=== PATIENT | male | born 1985 | race Hispanic/Latino ===

== ENCOUNTER 2021-01-22 16:48 | Emergency (ER) | payer OTHER ==
[2021-01-22] MEDS ORDERED: KETOROLAC 60 MG VIAL (30MG/ML) IM ONE (20:15)
[2021-01-22 20:47] VITALS: BP 156/80
[2021-01-22] MEDS ORDERED: MELO7.5T12 PO (21:28)
[2021-01-22] MEDS ORDERED: CYCL10TA7 PO (21:28)
[2021-01-22 21:48] VITALS: BP 144/78
== END 2021-01-22 21:49 | disposition home or self-care (01) ==
LOC: EDH 16:48
DX: S80.02XA Contusion of left knee, initial encounter (principal); Z79.1 Long term (current) use of non-steroidal anti-inflammatories (NSAID); W17.89XA Other fall from one level to another, initial encounter; Y93.89 Activity, other specified; Y92.89 Other specified places as the place of occurrence of the external cause; Y99.8 Other external cause status
CPT/HCPCS: 73562

== ENCOUNTER → 2021-09-15 | Outpatient (CLI) | payer MEDICAID, OTHER ==
[~2021-09-15] MED LIST: CEFU500T67 PO
== END | disposition home or self-care (01) ==
LOC: WHH 08:58
PROVIDERS: ATTEND Family Medicine
DX: T81.89XA Other complications of procedures, not elsewhere classified, initial encounter (principal); S31.102A Unspecified open wound of abdominal wall, epigastric region without penetration into peritoneal cavity, initial encounter; Z90.49 Acquired absence of other specified parts of digestive tract; Z98.890 Other specified postprocedural states; Z79.899 Other long term (current) drug therapy; Z93.3 Colostomy status; X58.XXXA Exposure to other specified factors, initial encounter; Y83.8 Other surgical procedures as the cause of abnormal reaction of the patient, or of later complication, without mention of misadventure at the time of the procedure; Y92.238 Other place in hospital as the place of occurrence of the external cause; Y93.89 Activity, other specified
CPT/HCPCS: 99215; A4450

== ENCOUNTER → 2021-09-22 | Outpatient (CLI) | payer MEDICAID, OTHER | END | disposition home or self-care (01) | LOC: WHH 09:03 | PROVIDERS: ATTEND Family Medicine | DX: T81.89XD Other complications of procedures, not elsewhere classified, subsequent encounter (principal); S31.102D Unspecified open wound of abdominal wall, epigastric region without penetration into peritoneal cavity, subsequent encounter; Z90.49 Acquired absence of other specified parts of digestive tract; Z98.890 Other specified postprocedural states; Z79.899 Other long term (current) drug therapy; Z93.3 Colostomy status; X58.XXXD Exposure to other specified factors, subsequent encounter; Y83.8 Other surgical procedures as the cause of abnormal reaction of the patient, or of later complication, without mention of misadventure at the time of the procedure | CPT/HCPCS: 99214 ==

== ENCOUNTER → 2021-09-29 | Outpatient (CLI) | payer OTHER ==
[~2021-09-29] MED LIST changes: +HONEY 1 APPL/ML TUBE TP ONE; +LIDOCAINE HCL 4% LTA SOL 4 ML VIAL TP ONE
== END | disposition home or self-care (01) ==
LOC: WHH 10:04
PROVIDERS: ATTEND Family Medicine
DX: T81.31XD Disruption of external operation (surgical) wound, not elsewhere classified, subsequent encounter (principal); S31.102D Unspecified open wound of abdominal wall, epigastric region without penetration into peritoneal cavity, subsequent encounter; Z90.49 Acquired absence of other specified parts of digestive tract; Z98.890 Other specified postprocedural states; Z79.899 Other long term (current) drug therapy; Z93.3 Colostomy status; X58.XXXD Exposure to other specified factors, subsequent encounter; Y83.8 Other surgical procedures as the cause of abnormal reaction of the patient, or of later complication, without mention of misadventure at the time of the procedure
CPT/HCPCS: 99214

== ENCOUNTER → 2021-10-06 | Outpatient (CLI) | payer OTHER | END | disposition home or self-care (01) | LOC: WHH 10:03 | PROVIDERS: ATTEND Family Medicine | DX: T81.31XD Disruption of external operation (surgical) wound, not elsewhere classified, subsequent encounter (principal); S31.102D Unspecified open wound of abdominal wall, epigastric region without penetration into peritoneal cavity, subsequent encounter; Z90.49 Acquired absence of other specified parts of digestive tract; Z98.890 Other specified postprocedural states; Z79.899 Other long term (current) drug therapy; Z93.3 Colostomy status; X58.XXXD Exposure to other specified factors, subsequent encounter; Y83.8 Other surgical procedures as the cause of abnormal reaction of the patient, or of later complication, without mention of misadventure at the time of the procedure | CPT/HCPCS: 11042 ==

== ENCOUNTER → 2021-10-13 | Outpatient (CLI) | payer MEDICAID, OTHER ==
[~2021-10-13] MED LIST changes: -HONEY 1 APPL/ML TUBE TP ONE; -LIDOCAINE HCL 4% LTA SOL 4 ML VIAL TP ONE
== END | disposition home or self-care (01) ==
LOC: WHH 11:01
PROVIDERS: ATTEND Family Medicine
DX: T81.89XD Other complications of procedures, not elsewhere classified, subsequent encounter (principal); S31.102D Unspecified open wound of abdominal wall, epigastric region without penetration into peritoneal cavity, subsequent encounter; Z90.49 Acquired absence of other specified parts of digestive tract; Z98.890 Other specified postprocedural states; Z79.899 Other long term (current) drug therapy; Z93.3 Colostomy status; X58.XXXD Exposure to other specified factors, subsequent encounter; Y83.8 Other surgical procedures as the cause of abnormal reaction of the patient, or of later complication, without mention of misadventure at the time of the procedure
CPT/HCPCS: 99214

== ENCOUNTER 2022-06-19 09:20 | Inpatient (IN) | payer MEDICAID, OTHER ==
[~2022-06-19] VITALS: Ht 160 cm; Wt 76.2 kg
[2022-06-19 11:13] LABS: CREATININE 0.9 mg/dL (0.5-1.5); POTASSIUM 3.8 mmol/L (3.5-5.1)
[2022-06-19 11:17] LABS: BASOPHILS % (AUTO) 0.7 % (0.0-5.0); EOSINOPHILS % (AUTO) 1.5 % (0.0-8.0); HEMATOCRIT 42.2 % (42-54); LYMPHOCYTES % (AUTO) 15.8 % (21.0-51.0); MEAN CORPUSCULAR HEMOGLOBIN 29.6 pg (27.0-33.0); MEAN CORPUSCULAR HGB CONC 35.5 g/dL (32.0-36.0); MEAN CORPUSCULAR VOLUME 83.2 fL (79-99); MONOCYTES % (AUTO) 5.2 % (3.0-13.0); NEUTROPHILS % (AUTO) 76.2 % (40.0-77.0); PLATELET COUNT (AUTO) 331 K/uL (130-400); RED BLOOD CELL COUNT(AUTO) 5.07 MIL/uL (4.50-6.20); RED CELL DISTRIBUTION WIDTH 12.5 % (11.0-15.5); WHITE BLOOD COUNT (AUTO) 6.7 K/uL (4.8-10.8)
[2022-06-19 11:18] LABS: ALBUMIN 4.1 g/dL (3.5-5.0); TOTAL PROTEIN, SERUM 7.7 g/dL (6.0-8.3)
[2022-06-19 11:55] LABS: INR 0.93 (0.85-1.15); PROTHROMBIN TIME 10.1 SEC (9.6-11.6)
[2022-06-19] MEDS ORDERED: PEG 3350/NA SULF,BICARB,CL/KCL 4000 ML SOLN PO ONE (12:00)
[2022-06-19] MEDS: 0.9%NACL 1000ML 1,000 ML IV SCH ×2 (12:20→22:10)
[2022-06-19] MEDS: ZOSYN 3.375GM +NS 50ML IV SCH ×2 (12:20→20:45)
[2022-06-19 12:44] LABS: APPEARANCE,URINE CLEAR (CLEAR); BILIRUBIN,URINE NEGATIVE (NEGATIVE); COLOR,URINE LIGHT-YELLOW (YELLOW); GLUCOSE, URINE (UA) NEGATIVE (NEGATIVE); KETONES,URINE NEGATIVE (NEGATIVE); LEUKOCYTE ESTERASE ,URINE NEGATIVE Leu/uL (NEGATIVE); NITRATE,URINE NEGATIVE (NEGATIVE); OCCULT BLOOD,URINE NEGATIVE (NEGATIVE); PROTEIN,URINE NEGATIVE (NEGATIVE); UROBILINOGEN,URINE 0.2 mg/dL (0.2-1.0)
[2022-06-19] MEDS ORDERED: IOHEXOL 350 MG/ML 100ML INFUS..BTL IV ONE (13:18)
[2022-06-20] VITALS (21 sets, daily range): BP systolic 112–148; BP diastolic 50–93
[2022-06-20] MEDS: ZOSYN 3.375GM +NS 50ML IV SCH ×3 (04:32→20:11)
[2022-06-20 06:21] LABS: MEAN CORPUSCULAR HGB CONC 34.5 g/dL (32.0-36.0); MEAN CORPUSCULAR VOLUME 84.3 fL (79-99); RED BLOOD CELL COUNT(AUTO) 4.51 MIL/uL (4.50-6.20); RED CELL DISTRIBUTION WIDTH 12.5 % (11.0-15.5); WHITE BLOOD COUNT (AUTO) 5.5 K/uL (4.8-10.8)
[2022-06-20 06:29] LABS: POTASSIUM 3.6 mmol/L (3.5-5.1)
[2022-06-20] MEDS: ENOXAPARIN SODIUM 40 MG/0.4 ML SYRINGE SQ SCH (09:00)
[2022-06-20] MEDS: PANTOPRAZOLE 40 MG/VIAL IVP SCH (09:00)
[2022-06-20] MEDS: 0.9%NACL 1000ML 1,000 ML IV SCH ×2 (09:48→20:45)
[2022-06-20] MEDS ORDERED: LACTATED RINGERS 1000ML 1,000 ML IV ONE (10:20)
[2022-06-20] MEDS ORDERED: BUPIVACAINE/PF 0.5% 30ML VIAL ONE (10:30)
[2022-06-20] MEDS ORDERED: LIDOCAINE HCL 1% 10 ML VIAL ONE ×2 (10:31→14:57)
[2022-06-20] MEDS ORDERED: CEFAZOLIN SODIUM 1 GM VIAL ONE (10:32)
[2022-06-20] MEDS ORDERED: EPINEPHRINE PF 1MG (1:1,000) 1 MG/ML AMP ONE (10:42)
[2022-06-20] MEDS ORDERED: DEXAMETHASONE SOD PHOSPHATE 10MG/ML 1ML VIAL ONE (11:08)
[2022-06-20] MEDS ORDERED: MIDAZOLAM HCL 1 MG/ML 2ML VIAL ONE (11:08)
[2022-06-20] MEDS ORDERED: LIDOCAINE PF 100MG/5ML (2%) SYRINGE 5ML ONE (11:08)
[2022-06-20] MEDS ORDERED: SUCCINYLCHOLINE CHLORIDE 20 MG/ML 10 ML VIAL ONE (11:08)
[2022-06-20] MEDS ORDERED: ONDANSETRON 4MG INJ ONE ×2 (11:08→13:04)
[2022-06-20] MEDS ORDERED: PROPOFOL 10 MG/ML 20ML VIAL IV ONE (11:09)
[2022-06-20] MEDS ORDERED: NEOSTIGMINE 5MG/5ML SYR IV ONE (11:09)
[2022-06-20] MEDS ORDERED: GLYCOPYRROLATE 1 MG/5 ML SYRINGE ONE (11:09)
[2022-06-20] MEDS ORDERED: ROCURONIUM 10MG/1ML SYR 10 MG/ML ML ONE ×2 (11:09→13:12)
[2022-06-20] MEDS ORDERED: FENTANYL CITRATE PF 50 MCG/1 ML 2ML VIAL ONE (11:09)
[2022-06-20] MEDS ORDERED: PHENYLEPHRINE HCL 10 MG/ML 1ML VIAL IV ONE (11:27)
[2022-06-20] MEDS ORDERED: FENTANYL CITRATE PF 50 MCG/1 ML 5ML AMP IV ONE (13:12)
[2022-06-20] MEDS ORDERED: BUPIVACAINE/EPI/PF 0.5% 30ML VIAL IJ ONE (14:56)
[2022-06-20] MEDS ORDERED: MEPERIDINE-PF 25 MG/ML SYG ONE ×2 (17:59→18:15)
[2022-06-20] MEDS ORDERED: HYDROMORPHONE 1 MG INJ ONE (18:05)
[2022-06-20] MEDS ORDERED: KETOROLAC 30MG VIAL (30MG/ML) ONE (18:27)
[2022-06-20] MEDS: ONDANSETRON 4MG INJ IVP PRN (20:11)
[2022-06-20] MEDS: HYDROMORPHONE 1 MG INJ IVP PRN (20:13)
[2022-06-21 00:40] VITALS: BP 120/75
[2022-06-21 04:00] VITALS: BP 118/78
[2022-06-21] MEDS: ZOSYN 3.375GM +NS 50ML IV SCH ×3 (04:28→21:09)
[2022-06-21] MEDS: 0.9%NACL 1000ML 1,000 ML IV SCH ×3 (04:29→21:10)
[2022-06-21] MEDS: ONDANSETRON 4MG INJ IVP PRN ×2 (04:48→18:18)
[2022-06-21] MEDS: HYDROMORPHONE 1 MG INJ IVP PRN ×4 (04:50→18:18)
[2022-06-21 05:33] LABS: MEAN CORPUSCULAR HEMOGLOBIN 29.6 pg (27.0-33.0); MEAN CORPUSCULAR VOLUME 84.5 fL (79-99); RED BLOOD CELL COUNT(AUTO) 4.26 MIL/uL (4.50-6.20); RED CELL DISTRIBUTION WIDTH 12.5 % (11.0-15.5); WHITE BLOOD COUNT (AUTO) 11.9 K/uL (4.8-10.8)
[2022-06-21 05:46] LABS: CREATININE 0.9 mg/dL (0.5-1.5); POTASSIUM 4.1 mmol/L (3.5-5.1)
[2022-06-21 08:00] VITALS: BP 130/78
[2022-06-21] MEDS: PANTOPRAZOLE 40 MG/VIAL IVP SCH (10:04)
[2022-06-21] MEDS: ENOXAPARIN SODIUM 40 MG/0.4 ML SYRINGE SQ SCH (10:05)
[2022-06-21 11:00] VITALS: BP 125/80
[2022-06-21] MEDS: KETOROLAC 30MG VIAL (30MG/ML) IVP PRN (14:17)
[2022-06-21 16:00] VITALS: BP 117/71
[2022-06-21] MEDS ORDERED: LOSA50TA64 PO (18:51)
[2022-06-21] MEDS ORDERED: ATOR40TA71 PO (18:52)
[2022-06-21] MEDS ORDERED: ASPI-1197 PO (18:53)
[2022-06-21] MEDS ORDERED: METF-445 PO (18:55)
[2022-06-21 19:00] VITALS: BP 129/79
[2022-06-22] VITALS (7 sets, daily range): BP systolic 116–140; BP diastolic 76–83
[2022-06-22] MEDS: HYDROMORPHONE 1 MG INJ IVP PRN ×2 (03:13→11:11)
[2022-06-22] MEDS ORDERED: PHENAZOPYRIDINE HCL 200 MG TABLET ONE (04:41)
[2022-06-22] MEDS: ZOSYN 3.375GM +NS 50ML IV SCH ×3 (04:58→20:16)
[2022-06-22] MEDS: 0.9%NACL 1000ML 1,000 ML IV SCH ×2 (04:59→20:17)
[2022-06-22 05:34] LABS: BASOPHILS % (AUTO) 0.2 % (0.0-5.0); HEMATOCRIT 33.4 % (42-54); LYMPHOCYTES % (AUTO) 15.2 % (21.0-51.0); MEAN CORPUSCULAR HEMOGLOBIN 29.3 pg (27.0-33.0); MEAN CORPUSCULAR HGB CONC 34.4 g/dL (32.0-36.0); NEUTROPHILS % (AUTO) 78.3 % (40.0-77.0); PLATELET COUNT (AUTO) 232 K/uL (130-400); RED BLOOD CELL COUNT(AUTO) 3.93 MIL/uL (4.50-6.20); RED CELL DISTRIBUTION WIDTH 12.4 % (11.0-15.5); WHITE BLOOD COUNT (AUTO) 10.3 K/uL (4.8-10.8)
[2022-06-22 05:52] LABS: ALBUMIN 2.8 g/dL (3.5-5.0); CREATININE 0.9 mg/dL (0.5-1.5); POTASSIUM 3.5 mmol/L (3.5-5.1); TOTAL PROTEIN, SERUM 5.9 g/dL (6.0-8.3)
[2022-06-22] MEDS: ENOXAPARIN SODIUM 40 MG/0.4 ML SYRINGE SQ SCH (09:39)
[2022-06-22] MEDS: PANTOPRAZOLE 40 MG/VIAL IVP SCH (09:39)
[2022-06-22] MEDS: POTASSIUM CHLORIDE 20MEQ/100ML 100 ML IV PRN (13:05)
[2022-06-22] MEDS: LIDOCAINE HCL-MPF 1% 2ML VIAL IV PRN (13:05)
[2022-06-22] MEDS: KETOROLAC 30MG VIAL (30MG/ML) IVP PRN (16:27)
[2022-06-22] MEDS: KETOROLAC 30MG VIAL (30MG/ML) IVP SCH (20:16)
[2022-06-23 00:33] VITALS: BP 114/79
[2022-06-23] MEDS: KETOROLAC 30MG VIAL (30MG/ML) IVP SCH ×4 (02:00→20:57)
[2022-06-23 04:04] VITALS: BP 123/77
[2022-06-23] MEDS: ZOSYN 3.375GM +NS 50ML IV SCH ×3 (04:26→20:57)
[2022-06-23 04:45] LABS: BASOPHILS % (AUTO) 0.3 % (0.0-5.0); EOSINOPHILS % (AUTO) 1.4 % (0.0-8.0); HEMATOCRIT 29.9 % (42-54); LYMPHOCYTES % (AUTO) 16.6 % (21.0-51.0); MEAN CORPUSCULAR HEMOGLOBIN 29.3 pg (27.0-33.0); MEAN CORPUSCULAR HGB CONC 34.4 g/dL (32.0-36.0); MEAN CORPUSCULAR VOLUME 84.9 fL (79-99); MONOCYTES % (AUTO) 7.1 % (3.0-13.0); PLATELET COUNT (AUTO) 219 K/uL (130-400); RED BLOOD CELL COUNT(AUTO) 3.52 MIL/uL (4.50-6.20); RED CELL DISTRIBUTION WIDTH 12.3 % (11.0-15.5); WHITE BLOOD COUNT (AUTO) 9.6 K/uL (4.8-10.8)
[2022-06-23 05:04] LABS: ALBUMIN 2.6 g/dL (3.5-5.0); CREATININE 0.8 mg/dL (0.5-1.5); POTASSIUM 3.5 mmol/L (3.5-5.1); TOTAL PROTEIN, SERUM 6.1 g/dL (6.0-8.3)
[2022-06-23] MEDS: HYDROMORPHONE 1 MG INJ IVP PRN (05:48)
[2022-06-23] MEDS: 0.9%NACL 1000ML 1,000 ML IV SCH ×2 (06:00→16:37)
[2022-06-23 07:05] VITALS: BP 121/74
[2022-06-23] MEDS: PANTOPRAZOLE 40 MG/VIAL IVP SCH (09:00)
[2022-06-23] MEDS: ENOXAPARIN SODIUM 40 MG/0.4 ML SYRINGE SQ SCH (09:01)
[2022-06-23] MEDS: LIDOCAINE HCL-MPF 1% 2ML VIAL IV PRN ×2 (09:01→18:36)
[2022-06-23] MEDS: POTASSIUM CHLORIDE 20MEQ/100ML 100 ML IV PRN ×2 (09:01→18:35)
[2022-06-23 11:02] VITALS: BP 121/74
[2022-06-23 16:03] VITALS: BP 118/70
[2022-06-23 20:20] VITALS: BP 122/76
[2022-06-24] MEDS: KETOROLAC 30MG VIAL (30MG/ML) IVP SCH ×4 (02:12→20:42)
[2022-06-24] MEDS: 0.9%NACL 1000ML 1,000 ML IV SCH ×3 (02:13→22:03)
[2022-06-24 03:40] VITALS: BP 105/70
[2022-06-24] MEDS: ZOSYN 3.375GM +NS 50ML IV SCH ×3 (03:57→20:07)
[2022-06-24 05:10] LABS: BASOPHILS % (AUTO) 0.2 % (0.0-5.0); EOSINOPHILS % (AUTO) 3.5 % (0.0-8.0); HEMATOCRIT 28.6 % (42-54); LYMPHOCYTES % (AUTO) 21.3 % (21.0-51.0); MEAN CORPUSCULAR HEMOGLOBIN 29.1 pg (27.0-33.0); MEAN CORPUSCULAR HGB CONC 33.9 g/dL (32.0-36.0); MEAN CORPUSCULAR VOLUME 85.9 fL (79-99); MONOCYTES % (AUTO) 6.7 % (3.0-13.0); NEUTROPHILS % (AUTO) 67.8 % (40.0-77.0); PLATELET COUNT (AUTO) 265 K/uL (130-400); RED BLOOD CELL COUNT(AUTO) 3.33 MIL/uL (4.50-6.20); RED CELL DISTRIBUTION WIDTH 12.3 % (11.0-15.5); WHITE BLOOD COUNT (AUTO) 8.1 K/uL (4.8-10.8)
[2022-06-24 05:25] LABS: ALBUMIN 2.4 g/dL (3.5-5.0); CREATININE 0.8 mg/dL (0.5-1.5); POTASSIUM 3.8 mmol/L (3.5-5.1); TOTAL PROTEIN, SERUM 5.9 g/dL (6.0-8.3)
[2022-06-24 08:05] VITALS: BP 116/69
[2022-06-24] MEDS: PANTOPRAZOLE 40 MG/VIAL IVP SCH (09:06)
[2022-06-24] MEDS: ENOXAPARIN SODIUM 40 MG/0.4 ML SYRINGE SQ SCH (09:07)
[2022-06-24] MEDS: POTASSIUM CHLORIDE 20MEQ/100ML 100 ML IV PRN (09:10)
[2022-06-24] MEDS: LIDOCAINE HCL-MPF 1% 2ML VIAL IV PRN (09:33)
[2022-06-24 11:05] VITALS: BP 123/68
[2022-06-24 16:05] VITALS: BP 120/74
[2022-06-24 20:00] VITALS: BP 128/78
[2022-06-25] VITALS: BP 122/70
[2022-06-25] MEDS: KETOROLAC 30MG VIAL (30MG/ML) IVP SCH ×3 (02:11→14:45)
[2022-06-25 04:00] VITALS: BP 114/62
[2022-06-25] MEDS: ZOSYN 3.375GM +NS 50ML IV SCH ×3 (04:12→20:36)
[2022-06-25 05:19] LABS: BASOPHILS % (AUTO) 0.5 % (0.0-5.0); EOSINOPHILS % (AUTO) 6.8 % (0.0-8.0); HEMATOCRIT 25.8 % (42-54); LYMPHOCYTES % (AUTO) 24.5 % (21.0-51.0); MEAN CORPUSCULAR HEMOGLOBIN 29.5 pg (27.0-33.0); MEAN CORPUSCULAR HGB CONC 35.3 g/dL (32.0-36.0); MEAN CORPUSCULAR VOLUME 83.8 fL (79-99); MONOCYTES % (AUTO) 9.3 % (3.0-13.0); NEUTROPHILS % (AUTO) 57.9 % (40.0-77.0); PLATELET COUNT (AUTO) 259 K/uL (130-400); RED BLOOD CELL COUNT(AUTO) 3.08 MIL/uL (4.50-6.20); RED CELL DISTRIBUTION WIDTH 12.1 % (11.0-15.5); WHITE BLOOD COUNT (AUTO) 6.2 K/uL (4.8-10.8)
[2022-06-25 05:37] LABS: ALBUMIN 2.4 g/dL (3.5-5.0); CREATININE 0.8 mg/dL (0.5-1.5); POTASSIUM 3.4 mmol/L (3.5-5.1); TOTAL PROTEIN, SERUM 5.6 g/dL (6.0-8.3)
[2022-06-25] MEDS ORDERED: POTASSIUM CHLORIDE 10% ELIXIR 20 MEQ/15 ML UDCUP PO PRN (06:30)
[2022-06-25] MEDS: KCL 20 MEQ ERTAB PO PRN ×2 (06:34→09:00)
[2022-06-25 07:05] VITALS: BP 124/73
[2022-06-25] MEDS: PANTOPRAZOLE 40 MG/VIAL IVP SCH (09:00)
[2022-06-25] MEDS: 0.9%NACL 1000ML 1,000 ML IV SCH (09:00)
[2022-06-25] MEDS: ENOXAPARIN SODIUM 40 MG/0.4 ML SYRINGE SQ SCH (09:00)
[2022-06-25 11:06] VITALS: BP 115/74
[2022-06-25 16:07] VITALS: BP 124/79
[2022-06-25 18:17] LABS: APPEARANCE,URINE CLEAR (CLEAR); BILIRUBIN,URINE NEGATIVE (NEGATIVE); COLOR,URINE LIGHT-YELLOW (YELLOW); GLUCOSE, URINE (UA) NEGATIVE (NEGATIVE); KETONES,URINE 60 mg/dL (NEGATIVE); LEUKOCYTE ESTERASE ,URINE NEGATIVE Leu/uL (NEGATIVE); NITRATE,URINE NEGATIVE (NEGATIVE); OCCULT BLOOD,URINE NEGATIVE (NEGATIVE); PH,URINE 6.5 (5.0-8.0); PROTEIN,URINE NEGATIVE (NEGATIVE); UROBILINOGEN,URINE 0.2 mg/dL (0.2-1.0)
[2022-06-25 20:43] VITALS: BP 120/75
[2022-06-26 00:41] VITALS: BP 110/64
[2022-06-26] MEDS: ZOSYN 3.375GM +NS 50ML IV SCH ×3 (03:48→19:33)
[2022-06-26] MEDS: ACETAMINOPHEN 325 MG TAB PO PRN (03:51)
[2022-06-26 04:07] VITALS: BP 116/56
[2022-06-26 07:52] VITALS: BP 123/69
[2022-06-26] MEDS: ENOXAPARIN SODIUM 40 MG/0.4 ML SYRINGE SQ SCH (09:37)
[2022-06-26] MEDS: PANTOPRAZOLE 40 MG/VIAL IVP SCH (09:37)
[2022-06-26 12:00] VITALS: BP 121/72
[2022-06-26 15:34] VITALS: BP 119/75
[2022-06-26] MEDS ORDERED: KCL 20 MEQ ERTAB PO SCH (17:00)
[2022-06-26] MEDS: KCL 20 MEQ ERTAB PO PRN (17:34)
[2022-06-26 21:01] VITALS: BP 108/63
[2022-06-27] MEDS: ACETAMINOPHEN 325 MG TAB PO PRN (00:01)
[2022-06-27 00:35] VITALS: BP 118/74
[2022-06-27] MEDS: ZOSYN 3.375GM +NS 50ML IV SCH (03:19)
[2022-06-27 04:10] VITALS: BP 113/70
[2022-06-27 08:00] VITALS: BP 117/78
[2022-06-27] MEDS: ENOXAPARIN SODIUM 40 MG/0.4 ML SYRINGE SQ SCH (08:55)
[2022-06-27] MEDS: PANTOPRAZOLE 40 MG/VIAL IVP SCH (08:55)
== END 2022-06-27 12:50 | disposition home or self-care (01) | DRG 330 ==
LOC: EDH 09:20 → EDHIP 09:21 → INTOOBSV 09:21 → OBSVTOIN 09:21 → 3CH 06-20 03:24
PROVIDERS: ADMIT Hospitalist; ATTEND Hospitalist
PROC: 0DBL0ZZ Excision of Transverse Colon, Open Approach (ICD-10-PCS; 2022-06-20)
PROC: 0DNU0ZZ Release Omentum, Open Approach (ICD-10-PCS; principal; 2022-06-20 12:54)
DX: K94.09 Other complications of colostomy (principal); N32.1 Vesicointestinal fistula; Z20.822 Contact with and (suspected) exposure to COVID-19; D72.829 Elevated white blood cell count, unspecified; K66.0 Peritoneal adhesions (postprocedural) (postinfection)
CPT/HCPCS: 36415; 71045; 74177; 80048; 80053; 81003; 83735; 84132; 85025; 85027; 85610; 86850; 86900; 86901; 87088; 87635; 97039; A4344; A6266; C9113; G0378; J0171; J0330; J0690; J1100; J1170; J1650; J1885; J2001; J2175; J2250; J2370; J2405; J2543; J2704; J2710; J3010; J3480; J3490; J7030; J7120; Q9967

== ENCOUNTER → 2022-07-04 | Outpatient (CLI) | payer OTHER ==
[~2022-07-04] MED LIST changes: +ASPI-1197 PO; +ATOR40TA71 PO; -CEFU500T67 PO; +LIDOCAINE HCL 4% LTA SOL 4 ML VIAL TP ONE; +LOSA50TA64 PO; +METF-445 PO
== END | disposition home or self-care (01) ==
LOC: WHH 09:54
PROVIDERS: ATTEND Family Medicine
DX: T81.32XA Disruption of internal operation (surgical) wound, not elsewhere classified, initial encounter (principal); Z90.49 Acquired absence of other specified parts of digestive tract; Z98.890 Other specified postprocedural states; Z79.899 Other long term (current) drug therapy; Z93.3 Colostomy status; Z90.89 Acquired absence of other organs; Y83.8 Other surgical procedures as the cause of abnormal reaction of the patient, or of later complication, without mention of misadventure at the time of the procedure; Y92.238 Other place in hospital as the place of occurrence of the external cause
CPT/HCPCS: 99215; A4450

== ENCOUNTER → 2022-07-10 | Outpatient (CLI) | payer OTHER ==
[~2022-07-10] MED LIST changes: -LIDOCAINE HCL 4% LTA SOL 4 ML VIAL TP ONE
== END | disposition home or self-care (01) ==
LOC: WHH 09:46
PROVIDERS: ATTEND Family Medicine
DX: T81.32XD Disruption of internal operation (surgical) wound, not elsewhere classified, subsequent encounter (principal); Z90.49 Acquired absence of other specified parts of digestive tract; Z98.890 Other specified postprocedural states; Z79.899 Other long term (current) drug therapy; Y83.8 Other surgical procedures as the cause of abnormal reaction of the patient, or of later complication, without mention of misadventure at the time of the procedure
CPT/HCPCS: 99214

== ENCOUNTER → 2022-07-17 | Outpatient (CLI) | payer OTHER | END | disposition home or self-care (01) | LOC: WHH 09:46 | PROVIDERS: ATTEND Family Medicine | DX: T81.31XD Disruption of external operation (surgical) wound, not elsewhere classified, subsequent encounter (principal); S31.101D Unspecified open wound of abdominal wall, left upper quadrant without penetration into peritoneal cavity, subsequent encounter; Z90.49 Acquired absence of other specified parts of digestive tract; Z79.899 Other long term (current) drug therapy; Z93.3 Colostomy status; Y83.8 Other surgical procedures as the cause of abnormal reaction of the patient, or of later complication, without mention of misadventure at the time of the procedure; X58.XXXD Exposure to other specified factors, subsequent encounter | CPT/HCPCS: 99214; A6248 ==

== ENCOUNTER → 2022-07-24 | Outpatient (CLI) | payer OTHER ==
[~2022-07-24] MED LIST changes: +LIDOCAINE HCL 4% LTA SOL 4 ML VIAL TP ONE
== END | disposition home or self-care (01) ==
LOC: WHH 09:51
PROVIDERS: ATTEND Family Medicine
DX: T81.31XD Disruption of external operation (surgical) wound, not elsewhere classified, subsequent encounter (principal); S31.101D Unspecified open wound of abdominal wall, left upper quadrant without penetration into peritoneal cavity, subsequent encounter; Z90.49 Acquired absence of other specified parts of digestive tract; Z93.3 Colostomy status; Z79.899 Other long term (current) drug therapy; X58.XXXD Exposure to other specified factors, subsequent encounter; Y83.8 Other surgical procedures as the cause of abnormal reaction of the patient, or of later complication, without mention of misadventure at the time of the procedure
CPT/HCPCS: 99214